=== PATIENT | male | born 1960 | race Caucasian/White ===

== ENCOUNTER 2019-08-27 09:52 | Day surgery (SDC) | payer OTHER ==
[~2019-08-27] VITALS: Ht 152.4 cm; Wt 71.1 kg
[~2019-08-27 09:52] MED LIST: AMOX875 PO; HYDR1TAB94 PO
--- NOTE | 2019-08-27 12:01 | NUR ---
08/27/19 1201 Sheila Rosen LATE ENTRY: AT END OF CASE PT DESATURATED TO MID TO UPPER 80'S, CHIN LIFT PREFORMED AND 02 TURNED UP TO 5L, O2 SAT RETURNED TO LOW TO MID 90'S AND REQUIRED CHIN LIFT UNTIL HE WAS AWAKE TO KEEP SATS UP. ONCE HE AWOKE HE WAS INSTRUCTED TO COUGH AND DEEP BREATHE, O2 SAT IN MID 90'S AND O2 WAS DISCONTINUED AND HE STAYED IN THE MID 90'S. LUNGS ARE CLEAR T/O.
== END 2019-08-27 11:50 | disposition home or self-care (01) ==
LOC: ORSCSDS 09:52
PROVIDERS: Internal Medicine Gastroenterology
PROC: 0DB68ZX Excision of Stomach, Via Natural or Artificial Opening Endoscopic, Diagnostic (ICD-10-PCS; principal; 2019-08-27 11:00)
PROC: 0DB58ZX Excision of Esophagus, Via Natural or Artificial Opening Endoscopic, Diagnostic (ICD-10-PCS; principal; 2019-08-27 11:00)
DX: R10.11 Right upper quadrant pain (principal); Z86.19 Personal history of other infectious and parasitic diseases; Z87.891 Personal history of nicotine dependence; Z79.899 Other long term (current) drug therapy
CPT/HCPCS: 88305; 88342; J2704

== ENCOUNTER → 2022-05-19 | Outpatient (CLI) | payer SELFPAY | LOC: LAB 11:32 → LAB SHORT 11:32 | DX: R10.13 Epigastric pain (principal) | CPT/HCPCS: 82653 ==

== ENCOUNTER → 2024-07-16 | Outpatient (CLI) | payer BC, MEDICARE | END | disposition home or self-care (01) | LOC: LAB SHORT 10:38 → LAB 10:38 | DX: K61.1 Rectal abscess (principal) | CPT/HCPCS: 87070; 87077; 87147; 87186; 87205 ==

== ENCOUNTER → 2024-11-06 | Outpatient (CLI) | payer MEDICARE ==
[2024-11-12 22:46] LABS: OVA AND PARASITE,FECAL INTERP Negative (Negative)
== END ==
LOC: LAB 14:42 → LAB SHORT 14:42
DX: K58.1 Irritable bowel syndrome with constipation (principal); K59.09 Other constipation; R10.13 Epigastric pain
CPT/HCPCS: 87177; 87209